=== PATIENT | male | born 2000 | race African-American/Black ===

== ENCOUNTER 2021-12-03 22:04 | Emergency (ER) | payer OTHER | END 2021-12-03 23:54 | disposition home or self-care (01) | LOC: CSHERS 22:04 | DX: H66.42 Suppurative otitis media, unspecified, left ear (principal) | CPT/HCPCS: 99282 ==

== ENCOUNTER 2024-11-20 11:19 | Emergency (ER) | payer SELFPAY | END 2024-11-20 12:33 | disposition home or self-care (01) | LOC: CSHERS 11:19 | DX: L72.3 Sebaceous cyst (principal); F17.290 Nicotine dependence, other tobacco product, uncomplicated | CPT/HCPCS: 99283 ==